=== PATIENT | male | born 1995 | race Caucasian/White ===

== ENCOUNTER 2016-08-23 16:35 | Emergency (ER) | payer MEDICAID, OTHER ==
[~2016-08-23] VITALS: Ht 177.8 cm; Wt 73.5 kg
[~2016-08-23 16:35] MED LIST: TRAM50TA2 PO
[2016-08-23] MEDS ORDERED: LORazepam 2 MG/ML, 1ML IVPush ONE (17:00)
[2016-08-23] MEDS ORDERED: SODIUM CHLORIDE 0.9% 1,000ML IVBOLUS ONE (17:00)
[2016-08-23] MEDS ORDERED: SODIUM CHLORIDE FLUSH 10ML SYR IVF ONE (17:00)
[2016-08-23] MEDS ORDERED: LORazepam 2 MG/ML, 1ML ONE (17:04)
[2016-08-23 17:26] LABS: BLOOD UREA NITROGEN 14 mg/dL (7-18)
[2016-08-23 17:27] LABS: ASPARTATE AMINO TRANSFERASE 14 U/L (15-37)
[2016-08-23 17:29] LABS: ACETAMINOPHEN < 2 mcg/mL (10-30)
[2016-08-23 17:58] VITALS: BP 139/80
[2016-08-23 18:17] LABS: DAU SCREEN DISCLAIMER
== END 2016-08-23 19:31 | disposition home or self-care (01) ==
LOC: ED 16:59
DX: F16.129 Hallucinogen abuse with intoxication, unspecified (principal)
CPT/HCPCS: 36415; 80053; 80307; 80329; 85025; 93005; 96361; 96374; 99285; J2060; J7030; G0480

== ENCOUNTER 2017-09-20 05:55 | Emergency (ER) | payer MEDICAID ==
[~2017-09-20] VITALS: Ht 175.3 cm; Wt 66.2 kg
[2017-09-20] MEDS ORDERED: SODIUM CHLORIDE FLUSH 10ML SYR IVF ONE (06:30)
[2017-09-20] MEDS ORDERED: AMPICILLIN/SULBACTAM 3 GM in SODIUM CHLORIDE 0.9% 100 ML IVPB ONE (06:30)
[2017-09-20 06:45] LABS: BASOPHILS % (AUTO) 0 % (0-1); EOSINOPHILS # (AUTO) 0.13 x10^3/uL (0-0.4); EOSINOPHILS % (AUTO) 1 % (1-7); LYMPHOCYTES # (AUTO) 1.45 x10^3/uL (1-3.4); LYMPHOCYTES % (AUTO) 14 % (22-44); MD NO; MEAN CORPUSCULAR HEMOGLOBIN 31.4 pg (27.5-34.5); MEAN CORPUSCULAR VOLUME 89.7 fL (81-97); MEAN PLATELET VOLUME 7.4 fL (7.4-10.4); MONOCYTES # (AUTO) 0.46 x10^3/uL (0.2-0.8); MONOCYTES % (AUTO) 4 % (2-9); NEUTROPHILS # (AUTO) 8.46 x10^3/uL (1.8-6.8); NEUTROPHILS % (AUTO) 81 % (42-75); PLATELET COUNT 278 x10^3/uL (130-400); RED BLOOD COUNT 5.14 x10^6/uL (4.38-5.82)
[2017-09-20] MEDS ORDERED: KETOROLAC 30 MG/1 ML ONE (06:46)
[2017-09-20 06:57] LABS: ALBUMIN 4.3 g/dL (3.4-5.0); ANION GAP 10 mmol/L (5-15); CHLORIDE 107 mmol/L (98-107); CREATININE 1.22 mg/dL (0.7-1.3)
[2017-09-20] MEDS ORDERED: KETOROLAC 30 MG/1 ML IVPush ONE (07:00)
[2017-09-20] MEDS ORDERED: DIPH,PERTUSS(ACELL),TET VAC/PF 0.5 ML IM-VACC ONE ×2 (07:09→07:30)
[2017-09-20 07:37] VITALS: BP 116/68
== END 2017-09-20 07:41 | disposition home or self-care (01) ==
LOC: ED 07:30
DX: L03.011 Cellulitis of right finger (principal); W22.8XXA Striking against or struck by other objects, initial encounter; Y93.89 Activity, other specified; Y99.8 Other external cause status; Y92.69 Other specified industrial and construction area as the place of occurrence of the external cause
CPT/HCPCS: 36415; 73130; 80048; 82040; 85025; 90471; 90715; 96365; 96375; 99285; J0295; J1885

== ENCOUNTER 2019-12-26 05:32 | Emergency (ER) | payer OTHER ==
[~2019-12-26] VITALS: Ht 175.3 cm; Wt 60.0 kg
--- NOTE | 2019-12-26 05:46 | NUR ---
assumed care of pt. pt here for pain redness and irritation to L eye since last nocs. 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 pt reports that he feels like he has dust in his eye and has used the eye wash station at work 5 times pt repeatedly rubbing and pushing on his eye eye is red and irritated. pt reports that he is unsure if he has a loss or change of vision because his contact lens is out. pt requesting eye patch. ice pack given for comfort and lights dimmed
[2019-12-26] MEDS ORDERED: FLUORESCEIN OPHTHALMIC 1 MG STRIP ONE (05:59)
[2019-12-26] MEDS ORDERED: PROPARACAINE OPHTH 0.5%, 15ML ONE (05:59)
[2019-12-26] MEDS ORDERED: FLUORESCEIN OPHTHALMIC 1 MG STRIP EACHEYE ONE (06:00)
[2019-12-26] MEDS ORDERED: PROPARACAINE OPHTH 0.5%, 15ML EACHEYE ONE (06:00)
--- NOTE | 2019-12-26 06:03 | NUR ---
Dr Stroud at bedside for administration of eye gtts
--- NOTE | 2019-12-26 06:19 | NUR ---
meds requested from Pharmacy
[2019-12-26] MEDS ORDERED: CIPROFLOXACIN OPHTH SOLN 0.3%, 5ML LEFTEYE ONE (06:30)
--- NOTE | 2019-12-26 06:54 | NUR ---
report to Krishan MARTIN
[2019-12-26 07:24] VITALS: BP 132/74
== END 2019-12-26 07:27 | disposition home or self-care (01) ==
LOC: ED 06:46
DX: H18.822 Corneal disorder due to contact lens, left eye (principal)
CPT/HCPCS: 99283